=== PATIENT | female | born 1990 | race Asian ===

== ENCOUNTER 2021-01-22 13:34 | Emergency (ER) | payer OTHER ==
--- NOTE | 2021-01-22 14:36 | XRAY Report ---
PROCEDURE: Lumbar Spine 2 View INDICATIONS: airplane seat vs shoulder/back TECHNIQUE: 2 views of the lumbar spine were acquired. COMPARISON: None. FINDINGS: Bones: 5 [id number] vertebrae are present. There is normal bony alignment. No vertebral body compression fractures. No suspicious bony lesions. Soft tissues: Overlying bowel gas pattern is normal. No suspicious soft tissue calcifications. IMPRESSION: Normal examination, no trauma found. Reviewed by: Cooper Marie MD on 01/22/2021 2:34 PM PDT Approved by: Cooper Marie MD on 01/22/2021 2:34 PM PDT Station ID: [id number]
--- NOTE | 2021-01-22 14:37 | XRAY Report ---
PROCEDURE: Shoulder 3 View RT INDICATIONS: airplane seat vs shoulder/back TECHNIQUE: 3 views of the shoulder were acquired. COMPARISON: None. FINDINGS: Bones: No fractures or dislocations. No suspicious bony lesions. Visualized ribs appear intact. Soft tissues: No suspicious soft tissue calcifications. IMPRESSION: No trauma found, normal for age. Reviewed by: Cooper Marie MD on 01/22/2021 2:35 PM PDT Approved by: Cooper Marie MD on 01/22/2021 2:35 PM PDT Station ID: [id number]
--- NOTE | 2021-01-22 15:23 | ED Physician Documentation ---
History of Present Illness - Stated complaint Stated Complaint: SHOULDER,BACK,HIP INJ - Chief complaint Chief Complaint: Trauma Ch/Bk - History obtained from History obtained from: Patient - History of Present Illness Timing: Today Pain level max: 5 Pain level now: 3 - Additonal information Additional information: 30-year-old female presents to the emergency department stating that she was moving an airplane seats at the [employer], installing them in a plane when it fell striking her in the right shoulder and injuring her right low back. No numbness or tingling. Worse with movement, better with rest. Denies any possibility of . No head or neck pain. Has not taken anything for this. Review of Systems Constitutional: denies: Fever, Chills GI: denies: Vomiting, Diarrhea : denies: Now EGA Skin: reports: Rash (Patient states that she does get a rash to her bilateral hands. This occurs after wearing gloves, usually nitrile all day. She states currently the rash is mild) Musculoskeletal: denies: Neck pain, Back pain PD PAST MEDICAL HISTORY - Past Medical History Past Medical History: No - Past Surgical History Past Surgical History: No - Allergies Allergies/Adverse Reactions: Allergies Allergy/AdvReac Type Severity Reaction Status Date / Time Latex, Natural Rubber Allergy Hives Verified 01/22/21 13:54 - Living Situation Living Situation: reports: With family Living Arrangement: reports: At home - Social History Does the pt have substance abuse?: No - Family History Family history: reports: Non contributory PD ED PE NORMAL - Vitals Vital signs reviewed: Yes - General General: Alert and oriented X 3, No acute distress - HEENT HEENT: Atraumatic, PERRL, Moist mucous membranes - Neck Neck: Supple, no meningeal sign, No bony TTP - Cardiac Cardiac: RRR - Respiratory Respiratory: No respiratory distress, Clear bilaterally - Abdomen Abdomen: Soft, Non tender, Non distended - Back Back: No spinal TTP, Other (Mild tenderness to palpation over the right SI joint. Otherwise normal examination of the back.) - Derm Derm: Warm and dry - Extremities Extremities: No deformity, Normal ROM s pain, No edema, No calf tenderness / cord, Other (Full range of motion of the right shoulder without pain. No deformity. No clavicle tenderness. Neurovascular intact) - Neuro Neuro: Alert and oriented X 3, Other (Normal bilateral lower extremity patellar and ankle jerk reflexes. Normal great toe extension bilaterally. no saddle anesthesia) - Psych Psych: Normal mood, Normal affect Results - Vitals Vitals: Vital Signs - 24 hr 01/22/21 01/22/21 13:48 15:41 Temperature 36.5 C 9738 C H Heart Rate 79 78 Respiratory 14 16 Rate Blood Pressure 119/86 H 118/61 O2 Saturation 100 97 Oxygen O2 Source Room air - Rads (name of study) Lumbar spine x-ray Radiology: Final report received, EMP read contemporaneously, See rad report (No acute abnormality) R shoulder xray Radiology: Final report received, EMP read contemporaneously, See rad report (No acute abnormality) PD MEDICAL DECISION MAKING - ED course Complexity details: reviewed results, considered differential (No cauda equina, no spinal epidural abscess, no fracture, no aortic dissection or evidence of aneursym rupture), d/w patient ED course: 30-year-old female presents to the emergency department after an injury to the right shoulder and right lower spine. No acute findings on x-ray. Ambulating without difficulty. Normal neurological exam. We will continue supportive care. Declines pain medication here or for home. Patient does appear to have a small amount of dyshidrotic eczema on her hands. We will have her follow-up with her PCP for further care. If it worsens, would consider a steroid cream. Patient counseled regarding signs and symptoms for which I believe and urgent re-evaluation would be necessary. Patient with good understanding of and agreement to plan and is comfortable going home at this time This document was made in part using voice recognition software. While efforts are made to proofread this document, sound alike and grammatical errors may occur. Departure - Departure Disposition: Home, Self Care Clinical Impression: Dyshidrotic eczema Lumbar strain Qualifiers: Encounter type: initial encounter Qualified Code(s): S39.012A - Strain of muscle, fascia and tendon of lower back, initial encounter Shoulder strain Qualifiers: Encounter type: initial encounter Laterality: right Qualified Code(s): S46.911A - Strain of unspecified muscle, fascia and tendon at shoulder and upper arm level, right arm, initial encounter Condition: Good Instructions: ED Dermatitis Atopic Eczema, ED Sprain Strain Lumbar Follow-Up: your,docotor in 1 week [Other] Comments: I would continue Motrin and/or Tylenol as needed for pain. Your x-rays do not show any acute abnormality today. Continue to use lotion frequently on your hands, hydrocortisone cream may be necessary as well. Follow-up with your doctor for further care. Forms: Activity restrictions Discharge Date/Time: 01/22/21 15:46
[2021-01-22 15:46] VITALS: BP 118/61
== END 2021-01-22 15:46 | disposition home or self-care (01) ==
LOC: ED 13:34
DX: S39.012A Strain of muscle, fascia and tendon of lower back, initial encounter (principal); S46.911A Strain of unspecified muscle, fascia and tendon at shoulder and upper arm level, right arm, initial encounter; L30.1 Dyshidrosis [pompholyx]; X58.XXXA Exposure to other specified factors, initial encounter; Y93.89 Activity, other specified; Y92.139 Unspecified place military base as the place of occurrence of the external cause; Y99.1 Military activity
CPT/HCPCS: 99282; 99284